=== PATIENT | male | born 1945 | race Caucasian/White ===

== ENCOUNTER → 2018-06-05 12:41 | Outpatient (CLI) | payer MEDICARE, OTHER, SELFPAY ==
--- NOTE | 2018-06-05 | DI.CT.S_ITS ---
PROCEDURE: CT LUMBAR SPINE WO CON INDICATIONS: Ankylosing hyperostosis [[place]], site unspecif TECHNIQUE: Noncontrast 3 mm thick sections acquired from the T12 level to the sacrum. Sagittal and coronal reformats were constructed. For radiation dose reduction, the following was used: automated exposure control. COMPARISON: [facility], RG, SPINE LUMB 2 OR 3VW, 01/13/2017, 15:20. [facility] [place], CR, XR LUMBAR SPINE FLEXION EXTENSION, 05/30/2018, 13:11. FINDINGS: Image quality: Excellent. Bones: No visualized fracture or dislocations. There is trace retrolisthesis of L1 on L2, L2 on L3, L3 and L4 and L5 on S1. Mild to moderate disc space narrowing is present at L1-L2, L3-4, mild L2-L3, L4-5, L5-S1. Multilevel bridging anterior osteophytes are present throughout the visualized thoracolumbar and lumbosacral spine, most severe from L3-L5. L1-L2: Mild disc bulge without spinal stenosis. There is mild bilateral foraminal narrowing with facet hypertrophy. L2-L3: Mild disc bulge with minimal spinal stenosis. Mild to moderate bilateral foraminal narrowing, left greater than right. Facet and ligamentum flavum hypertrophy are present. L3-L4: Mild disc bulge without spinal stenosis. Moderate to severe left and moderate right foraminal narrowing with facet and ligamentum flavum hypertrophy. L4-L5: Mild disc bulge including a left foraminal component. No spinal stenosis. Moderate bilateral foraminal narrowing with facet and ligamentum flavum hypertrophy. L5-S1: Mild disc bulge without spinal stenosis. Moderate left and minimal right foraminal narrowing with facet and ligamentum flavum hypertrophy. Soft tissues: No retroperitoneal masses or hematomas. Visualized aorta is normal in caliber. IMPRESSION: 1. Significant thoracolumbar as well as lumbosacral bridging anterior osteophytes most suggestive of DISH. 2. Multilevel disc bulges. 3. Minimal spinal stenosis at L2-3 secondary to disc bulge which contribute effective facets/ligamenta flavum arthropathy. 4. Multilevel foraminal narrowing most severe at L3-4 secondary to facet arthropathy. Dictated by: Shala Starkey M.D. on 06/05/2018 at 17:27 Approved by: Shala Starkey M.D. on 06/05/2018 at 17:34
== END ==
PROVIDERS: PCP Family Medicine; Visit Provider Orthopaedic Surgery
DX: M48.10 Ankylosing hyperostosis [Forestier], site unspecified (principal); M51.26 Other intervertebral disc displacement, lumbar region; M51.27 Other intervertebral disc displacement, lumbosacral region; M25.78 Osteophyte, vertebrae; M48.061 Spinal stenosis, lumbar region without neurogenic claudication; M47.816 Spondylosis without myelopathy or radiculopathy, lumbar region
CPT/HCPCS: 72131

== ENCOUNTER → 2020-11-14 11:32 | Outpatient (CLI) | payer MEDICARE, OTHER, SELFPAY ==
--- NOTE | 2020-11-14 11:35 | DI.MRI.S_ITS ---
PROCEDURE: MR LUMBAR SPINE WO CON INDICATIONS: Spinal stenosis, lumbar region with neurogenic cla TECHNIQUE: Noncontrast sagittal T1 spin echo and T2 fast echo, sagittal STIR, axial T1 and T2 fast spin echo through the lumbar spine. In cases with scoliosis, additional coronal T2 fast spin echo may be performed. COMPARISON: [facility], CR, XR LUMBAR SPINE WITH OLBIQUES PLUS FLEXION EXTENSION, 11/04/2020, 13:35. FINDINGS: Image quality: Excellent. Alignment and Curvature: There is normal bony alignment. Bone Marrow: Marrow is of normal overall signal. No acute vertebral body compression fractures. Spinal Cord: Conus medullaris terminates at the L1 level. Visualized cord demonstrates normal signal and size. Paraspinous Soft Tissues: No paravertebral masses. T12-L1: Normal appearance. L1-L2: Minimal disc bulge. No canal stenosis or foraminal stenosis. L2-L3: Mild disc bulge. No canal stenosis. Mild bilateral foraminal narrowing. L3-L4: Mild disc height loss. No canal stenosis or foraminal stenosis. L4-L5: Disc bulge. Bilateral facet hypertrophy. No significant canal stenosis. No significant foraminal stenosis. L5-S1: Minimal disc bulge. Exuberant right facet hypertrophy, predominantly posteriorly directed. No canal stenosis or foraminal stenosis. IMPRESSION: 1. No evidence of canal stenosis or significant foraminal stenosis. 2. Lower lumbar arthropathy, prominent on the right at L5-S1. Dictated by: Gian Hansen M.D. on 11/17/2020 at 9:51 Approved by: Gian Hansen M.D. on 11/17/2020 at 9:56
== END ==
PROVIDERS: PCP Family Medicine; Referring Provider Physical Medicine & Rehabilitation Pain Medicine; Visit Provider Physical Medicine & Rehabilitation Pain Medicine
DX: M48.062 Spinal stenosis, lumbar region with neurogenic claudication (principal)
CPT/HCPCS: 72148

== ENCOUNTER → 2024-07-25 16:06 | Outpatient (CLI) | payer OTHER, SELFPAY ==
--- NOTE | 2024-07-25 16:09 | DI.MRI.S_ITS ---
PROCEDURE: MR LUMBAR SPINE WO CON INDICATIONS: SPINAL STENOSIS, LUMBAR REGION TECHNIQUE: Noncontrast sagittal T1 spin echo and T2 fast echo, sagittal STIR, and T2 fast spin echo through the lumbar spine. In cases with scoliosis, additional coronal T2 fast spin echo may be performed. COMPARISON: [facility] [place], MR, MR LUMBAR SPINE WO CON, 11/14/2020, 11:53. [facility] [place], CR, XR LUMBAR SPINE WITH OBLIQUES PLUS FLEXION EXTENSION, 07/23/2024, 9:40. FINDINGS: Image quality: Diagnostic, with note made of motion artifact. Alignment and Curvature: There is normal bony alignment. Bone Marrow: Marrow is of normal overall signal. No acute vertebral body compression fractures. Spinal Cord: Conus medullaris terminates at the T12-L1 level. Visualized cord demonstrates normal signal and size. Paraspinous Soft Tissues: No paravertebral masses. Multiple levels of bridging anterior osteophytes can be seen. T12-L1: No significant abnormality is seen. L1-L2: The disc height is well-preserved. Loss of disc signal is seen at this level. Mild generalized disc bulge is seen. There is a superimposed central disc protrusion. Mild to moderate bilateral neural foraminal narrowing can be seen. No significant central canal narrowing is seen. There is mild progression compared to the prior. L2-L3: The disc height is well-preserved. Loss of disc signal is seen at this level. Mild generalized disc bulge is seen. There is [id number] left-sided and moderate right-sided neural foraminal narrowing. No significant central canal narrowing is seen. There is slight progression compared to 2020. L3-L4: The disc height and disk signal are relatively well-preserved. Mild generalized disc bulge is seen. Mild bilateral neural foraminal narrowing is seen. No central canal narrowing is seen. No significant change from the prior. L4-L5: The disc height is well-preserved. Loss of disc signal is seen at this level. Moderate generalized disc bulge is seen. There is a superimposed central disc protrusion. Mild facet joint hypertrophy is seen. There is at least moderate right-sided and moderate left-sided neural foraminal narrowing. No significant central canal narrowing is seen. When comparison is made with the prior images, these findings are similar. L5-S1: The disc height and disk signal are well-preserved. Mild generalized disc bulge is seen. There is [id number] right-sided and mild left-sided facet hypertrophy. No significant neural foraminal or central canal narrowing can be seen. Stable from the prior study. IMPRESSION: Multiple levels of lumbar spine degenerative change can be seen, which are similar to 2020, although mildly progressed at L2-L3 since that time. Dictated by: Nguyễn Almodovar M.D. on 07/25/2024 at 17:32 Approved by: Nguyễn Almodovar M.D. on 07/25/2024 at 17:36
== END ==
LOC: MRI 16:08
PROVIDERS: PCP Nurse Practitioner Family; Referring Provider Physical Medicine & Rehabilitation Pain Medicine; Visit Provider Physical Medicine & Rehabilitation Pain Medicine
DX: M48.062 Spinal stenosis, lumbar region with neurogenic claudication (principal); M47.816 Spondylosis without myelopathy or radiculopathy, lumbar region; M47.817 Spondylosis without myelopathy or radiculopathy, lumbosacral region
CPT/HCPCS: 72148